=== PATIENT | male | born 1960 | race Caucasian/White ===

== ENCOUNTER 2017-03-29 12:09 | Emergency (ER) | payer OTHER | END 2017-03-29 12:31 | disposition home or self-care (01) | LOC: ER 12:09 | DX: H66.92 Otitis media, unspecified, left ear (principal); F31.9 Bipolar disorder, unspecified; I10 Essential (primary) hypertension; E78.5 Hyperlipidemia, unspecified; F17.210 Nicotine dependence, cigarettes, uncomplicated; Z79.899 Other long term (current) drug therapy; Z87.442 Personal history of urinary calculi ==